=== PATIENT | male | born 1990 | race Caucasian/White ===

== ENCOUNTER 2021-08-03 07:37 | Emergency (ER) | payer OTHER, SELFPAY ==
--- NOTE | ~2021-08-03 | XR_ITS ---
EXAMINATION: XR RIBS, LEFT CLINICAL INFORMATION: Left-sided chest pain COMPARISON: None TECHNIQUE: PA chest and three-view left ribs FINDINGS: There is no evidence of acute parenchymal disease, pneumothorax, or pleural effusion. Heart normal size. No evidence of pulmonary edema. No acute displaced left rib fracture identified. No destructive bony lesions seen. No pleural thickening appreciated. XR/XR ribs LT min 3V w CXR1V IMPRESSION: No significant bony abnormality of the left ribs identified. No acute parenchymal disease within the chest.
[2021-08-03 07:47] VITALS: BP 109/64; PULSE 50; RESP 16; TEMP 36.6; O2SAT 97; BMI 27.3
--- NOTE | 2021-08-03 08:09 | ED_ITS ---
HPI - Fall General Chief Complaint: Fall Stated Complaint: fall - rib pain Time Seen by Provider: 08/03/21 08:09 History of Present Illness HPI Narrative: Patient 31 years old in the . Patient status post accidental fall. Hit the left arm. Complaining of pain to the left ribs. No fever no chills. No head injury. No shortness of breath no diaphoresis. No nausea no vomiting no diarrhea. Pain is sharp. No focal weakness. Related Data Previous Rx's Medication Instructions Recorded ibuprofen 400 mg tablet 400 mg PO Q6H PRN #20 tab 08/03/21 Allergies Allergy/AdvReac Type Severity Reaction Status Date / Time Penicillins Allergy Rash Verified 08/03/21 07:51 Review of Systems Review of Systems: Sharp pain in the left chest only after the fall. No nausea no vomiting no systemic complaints Yes all other systems are reviewed and are negative [facility] Past Medical History Attestation statement: The following information was validated with the patient. Social History Social History Advance Directives: No Physical Exam Vital Signs: Vital Signs: Last Vital Signs Temp 97.9 F 08/03/21 07:47 Pulse 50 08/03/21 07:47 Resp 16 08/03/21 07:47 BP 109/64 08/03/21 07:47 Pulse Ox 97 08/03/21 07:47 Body Mass Index 27.3 Appearance: Alert. Oriented X3. No acute distress. Eyes: Pupils equal, round and reactive to light. ENT: Pharynx normal. Neck: Normal inspection. Neck supple. No lymph nodes noted. No crepitus CVS: Normal heart rate and rhythm. Pulses normal. Normal S1 and S2 Respiratory: No respiratory distress. Breath sounds normal. No Wheezing. No rales Abdomen: Soft and nontender. No rigidity. No distention. good BS x4 Skin: Skin warm and dry. Normal skin color. Normal skin turgor. Extremities: No lower extremity edema. Neurovascular intact to all extremities. No Lacerations. No Rash Neuro: Oriented X 3. No motor deficit. No sensory deficit. Moving all extermities. No slurred speech MDM - Fall MDM Narrative Medical decision making narrative: X-ray is grossly negative will discharge patient home Motrin for pain. No evidence for pneumonia pneumothorax. No evidence for rib fracture. In stable condition. Lab Data Attestation: I reviewed the patient's lab results. Discharge Plan Discharge Clinical Impression: Contusion Patient Disposition: Home, Self-Care Instructions: Bone Bruise (ED) Prescriptions: New ibuprofen 400 mg tablet 400 mg PO Q6H PRN (Reason: pain) Qty: 20 RF: 0 Referrals: Physician,Nonstaff [Primary Care Provider] - 2 days
== END 2021-08-03 08:53 | disposition home or self-care (01) ==
PROVIDERS: Emergency Provider Emergency Medicine Emergency Medical Services
DX: S20.212A Contusion of left front wall of thorax, initial encounter (principal); R07.81 Pleurodynia; X58.XXXA Exposure to other specified factors, initial encounter; Y93.9 Activity, unspecified; Y92.9 Unspecified place or not applicable; Y99.9 Unspecified external cause status
CPT/HCPCS: 71101; 99283